=== PATIENT | male | born 1945 | race Caucasian/White ===

== ENCOUNTER 2017-10-13 07:59 | Outpatient (CLI) | payer OTHER | END 2017-10-13 08:05 | disposition home or self-care (01) | LOC: LAB 07:59 | DX: E78.4 Other hyperlipidemia (principal); I10 Essential (primary) hypertension ==

== ENCOUNTER → 2018-03-29 | Outpatient (CLI) | payer OTHER | END | disposition home or self-care (01) | LOC: LAB 07:29 | DX: E03.8 Other specified hypothyroidism (principal); E78.4 Other hyperlipidemia; R73.01 Impaired fasting glucose ==

== ENCOUNTER 2020-09-18 09:00 | Outpatient (CLI) | payer OTHER | END 2020-09-18 11:11 | disposition home or self-care (01) | LOC: EDSEX 09:00 → PPH VACUNA 09:00 | PROVIDERS: ATTEND Emergency Medicine Pediatric Emergency Medicine | DX: Z23 Encounter for immunization (principal) ==

== ENCOUNTER → 2020-10-09 07:00 | Outpatient (CLI) | payer OTHER | END | disposition home or self-care (01) | LOC: PPH VACUNA 07:00 | PROVIDERS: ATTEND Emergency Medicine Pediatric Emergency Medicine | DX: Z23 Encounter for immunization (principal) ==

== ENCOUNTER 2021-06-24 08:13 | Outpatient (CLI) | payer OTHER | END 2021-06-24 15:58 | disposition home or self-care (01) | LOC: LAB 08:13 | DX: I10 Essential (primary) hypertension (principal); E03.8 Other specified hypothyroidism; R73.09 Other abnormal glucose; R53.81 Other malaise; E66.8 Other obesity; E55.9 Vitamin D deficiency, unspecified ==

== ENCOUNTER 2022-02-07 10:37 | Outpatient (CLI) | payer OTHER | END 2022-02-07 10:47 | disposition home or self-care (01) | LOC: PPH VACUNA 10:37 | PROVIDERS: ATTEND Emergency Medicine Pediatric Emergency Medicine | DX: Z23 Encounter for immunization (principal) ==

== ENCOUNTER → 2022-03-15 08:01 | Outpatient (CLI) | payer OTHER | END | disposition home or self-care (01) | LOC: LAB 08:01 | PROVIDERS: ATTEND Family Medicine | DX: N39.0 Urinary tract infection, site not specified (principal); N20.0 Calculus of kidney; N40.0 Benign prostatic hyperplasia without lower urinary tract symptoms; E03.8 Other specified hypothyroidism; R73.01 Impaired fasting glucose; I10 Essential (primary) hypertension; R53.81 Other malaise ==

== ENCOUNTER → 2022-06-27 10:00 | Outpatient (CLI) | payer OTHER | END | disposition home or self-care (01) | LOC: LAB 10:00 | PROVIDERS: ATTEND Specialist | DX: H16.142 Punctate keratitis, left eye (principal) ==